=== PATIENT | male | born 1945 | race Caucasian/White ===

== ENCOUNTER 2019-01-19 15:42 | Inpatient (IN) | payer MEDICAID, OTHER ==
[~2019-01-19] VITALS: Ht 172.7 cm; Wt 79.6 kg
[~2019-01-19 15:42] MED LIST: APIX5TAB PO; DIGO250T72 PO; DILT360C27 PO; FURO40TA4 PO; METO-319 PO; [UNRECOGNIZED DRUG - CODE] PO
[2019-01-19] MEDS ORDERED: ASPIRIN 81 MG TAB PO STA (15:53)
[2019-01-19] MEDS ORDERED: ALBUTEROL 0.083% (NEB) 2.5 MG/3 ML AMP NEB STA (16:00)
--- NOTE | 2019-01-19 16:19 | ERD ---
ER Documentation Chief Complaint Chief Complaint CP x 2 days worsening CP, SON and BLE swelling HPI 73-year-old Amharic speaking male with a history of hypertension, atrial fibrillation on Eliquis and metoprolol, and heart failure brought in by son for chest pain and worsening shortness of breath for the past 2 days. Patient stat es that he always has shortness of breath and he does not know what makes it worse. He intermittently gets some left-sided chest pain but currently he is denying any chest pain. He feels generally fatigued. Denies any recent illnesses, fevers, chills, nausea, vomiting. He does have bilateral lower extremity swelling which is usually worse than it is currently. He is on furosemide which she is taking regularly. ROS All systems reviewed and are negative except as per history of present illness. Medications Home Meds Reported Medications Furosemide* (Furosemide*) 40 Mg Tablet, 40 MG PO DAILY, TAB 01/19/19 Apixaban* (Eliquis*) 5 Mg Tablet, 5 MG PO BID, TAB 01/19/19 Metoprolol Succinate* (Toprol XL*) 50 Mg Tab.er.24h, 50 MG PO BID, #30 TAB 01/19/19 Discontinued Reported Medications Aspirin/Calcium Carbonate/Mag (Asa-Ca Carb-Mag 325 Mg Tablet) 325 Mg Tablet, 325 MG PO DAILY 06/16/12 Digoxin (Digoxin) 250 Mcg Tablet, 250 MCG PO DAILY 06/16/12 Diltiazem Hcl (Diltiazem Er) 360 Mg Capsule.sa, 360 MG PO DAILY 06/16/12 Allergies Allergies: Coded Allergies: No Known Allergy (Unverified , 01/19/19) PMhx/Soc History of Surgery: No Anesthesia Reaction: No Hx Neurological Disorder: No Hx Respiratory Disorders: No Hx Cardiac Disorders: Yes (CAD-3 STENTS) Hx Psychiatric Problems: No Hx Miscellaneous Medical Probl: Yes (HTN) Hx Alcohol Use: Yes Hx Substance Use: No Hx Tobacco Use: Yes Smoking Status: Current every day smoker FmHx Family History: No diabetes Physical Exam Vitals Vital Signs Date Temp Pulse Resp B/P (MAP) Pulse Ox O2 O2 Flow FiO2 Time Delivery Rate 01/19/19 84 18 116/84 100 Room Air 18:22 (95) 01/19/19 98.0 102 21 114/80 99 Room Air 17:25 (91) 01/19/19 112 20 96 21 16:07 01/19/19 98.3 100 20 109/75 99 15:51 (86) Physical Exam Const: No acute distress Head: Atraumatic Eyes: Normal Conjunctiva , PERRLA, EOMI ENT: Normal External Ears, Nose and Mouth. Neck: Full range of motion. No meningismus. Resp: Clear to auscultation bilaterally Cardio: Tachycardic with irregular rhythm, no murmurs. 2+ distal pulses in all 4 extremities Abd: Soft, non tender, non distended. Normal bowel sounds Skin: No petechiae or rashes Back: No midline or flank tenderness Ext: No cyanosis, trace bilateral lower extremity edema Neur: Awake and alert, oriented x3, normal speech, cranial nerves intact, strength and sensations intact in all 4 extremities Psych: Normal Mood and Affect Result Diagram: 01/19/19 1559 01/19/19 1559 Results 24 hrs Laboratory Tests Test 01/19/19 15:59 01/19/19 18:20 White Blood Count 8.4 10^3/ul Red Blood Count 4.56 10^6/ul Hemoglobin 7.6 g/dl Hematocrit 30.6 % Mean Corpuscular Volume 67.1 fl Mean Corpuscular Hemoglobin 16.7 pg Mean Corpuscular Hemoglobin Concent 24.8 g/dl Red Cell Distribution Width 20.8 % Platelet Count 248 10^3/UL Mean Platelet Volume fl Immature Granulocytes % 0.400 % Neutrophils % 60.3 % Lymphocytes % 25.3 % Monocytes % 11.1 % Eosinophils % 2.3 % Basophils % 0.6 % Nucleated Red Blood Cells % 0.2 /100WBC Immature Granulocytes # 0.030 10^3/ul Neutrophils # 5.1 10^3/ul Lymphocytes # 2.1 10^3/ul Monocytes # 0.9 10^3/ul Eosinophils # 0.2 10^3/ul Basophils # 0.1 10^3/ul Nucleated Red Blood Cells # 0.0 10^3/ul Sodium Level 141 mmol/L Potassium Level 4.4 mmol/L Chloride Level 105 mmol/L Carbon Dioxide Level 29 mmol/L Anion Gap 7 Blood Urea Nitrogen 22 mg/dl Creatinine 0.88 mg/dl Est Glomerular Filtrat Rate mL/min mL/min Glucose Level 116 mg/dl Calcium Level 9.1 mg/dl Troponin I < 0.012 ng/ml Stool Occult Blood NEGATIVE Current Medications Medications Dose Sig/Rosaura Start Time Status Last (Trade) Ordered Route PRN Stop Time Admin Dose Reason Admin Aspirin 162 mg ONCE STAT 01/19/19 DC 01/19/19 (Aspirin) PO 15:53 01/19/19 16:16 15:54 Albuterol 5 mg ONCE STAT 01/19/19 DC 01/19/19 (Proventil NEB 16:00 01/19/19 16:07 0.083% (Neb)) 16:01 Diltiazem 15 mg ONCE ONCE 01/19/19 DC 01/19/19 HCl IV 16:30 01/19/19 16:23 (Cardizem Iv) 16:31 Ondansetron 4 mg ER BRIDGE 01/19/19 HCl (Zofran PRN IV 18:30 01/20/19 Inj) NAUSEA/VOMITI 18:29 NG 650 mg ER BRIDGE 01/19/19 Acetaminophen PRN PO 18:30 01/20/19 (Tylenol .MILD PAIN 18:29 Tab) 1-3 OR TEMP Procedures/MDM EMERGENT LABS AND DIAGNOSTIC STUDIES: Lab Results above were reviewed and interpreted by me. CBC: Anemia BMP: [no e/o clinically significant electrolyte abnormality severe acidosis, alkalosis, renal failure, diabetic ketoacidosis] Troponin within normal limits, not indicative of cardiac ischemia Fecal occult blood negative 12-lead EKG was interpreted by Leni Harding MD: Atrial flutter with variable AV block at 113 bpm Normal axis Normal intervals No acute ST or T wave changes suggestive of acute ischemia or STEMI. EKG #2: Rate/Rhythm: Atrial flutter with variable block at 102 bpm QRS, ST, T-waves: [No changes consistent w/ acute ischemia] Impression: [No evidence of ischemia or arrhythmia] EKG #3: Rate/Rhythm: Atrial flutter at 115 bpm QRS, ST, T-waves: [No changes consistent w/ acute ischemia] Impression: [No evidence of ischemia or arrhythmia] Radiology Results as interpreted by Radiology below were reviewed by Jeff Harding MD: Chest x-ray shows no acute abnormalities Initial Nursing notes reviewed. Previous Medical Records requested via the Electronic Health Record. EMERGENCY DEPARTMENT COURSE / MEDICAL DECISION MAKING: Patient is presenting with worsening fatigue and shortness of breath. Vitals are notable for mild tachycardia. EKG did not show signs of acute ischemia. Initial troponin negative. No overt signs of CHF exacerbation. However patient was noted to be anemic. He denies any history of this. The anemia is of unclear etiology at this time. No evidence of rectal bleeding. However I feel the patient will require further work-up and trending of his hemoglobin. At this time, as he is not having any active bleeding, I do not feel transfusion is necessary. I will defer this to the inpatient team. I spoke with Dr. [facility], who will admit the patient to telemetry. Departure Diagnosis: Primary Impression: Shortness of breath Additional Impression: Anemia Anemia type: unspecified type Qualified Codes: D64.9 - Anemia, unspecified Condition: Fair AKILA HARDING MD Jan 19, 2019 16:19
[2019-01-19] MEDS ORDERED: DILTIAZEM 25 MG INJ IV ONE (16:30)
[2019-01-19] MEDS ORDERED: ACETAMINOPHEN 325 MG TAB PO PRN ×2 (18:30→19:30)
[2019-01-19] MEDS ORDERED: ONDANSETRON 4 MG INJ IV PRN (18:30)
[2019-01-19] MEDS ORDERED: NACL 0.9% 3 ML SYG IV SCH (19:30)
[2019-01-19] MEDS ORDERED: DOCUSATE SODIUM 100 MG CAP PO PRN (19:30)
[2019-01-19] MEDS ORDERED: ONDANSETRON 4 MG TAB PO PRN (19:30)
[2019-01-19] MEDS: METOPROLOL (XL) 50 MG TAB PO SCH (20:49)
[2019-01-19] MEDS: APIXABAN 5 MG TABLET PO SCH (20:49)
[2019-01-19] MEDS: FAMOTIDINE 20 MG TAB PO SCH (20:49)
[2019-01-19 21:31] VITALS: BP 146/73; PULSE 97; RESP 20
[2019-01-19 21:33] VITALS: Ht 172.7 cm; Wt 79.6 kg
[2019-01-20 00:31] VITALS: BP 127/96; PULSE 99; RESP 18
[2019-01-20 04:00] VITALS: BP 149/82; PULSE 110; RESP 18
[2019-01-20 07:32] VITALS: BP 113/73; PULSE 112; RESP 22
[2019-01-20] MEDS ORDERED: FUROSEMIDE 40 MG INJ IV ONE (08:00)
[2019-01-20] MEDS: METOPROLOL (XL) 50 MG TAB PO SCH ×2 (09:06→20:48)
[2019-01-20] MEDS: FAMOTIDINE 20 MG TAB PO SCH ×2 (09:06→20:47)
[2019-01-20] MEDS: APIXABAN 5 MG TABLET PO SCH (10:28)
[2019-01-20 11:10] VITALS: BP 122/54; PULSE 112; RESP 22
--- NOTE | 2019-01-20 12:30 | HP ---
DATE OF ADMISSION: 01/19/2019 CHIEF COMPLAINT: Chest pain, shortness of breath. HISTORY OF PRESENT ILLNESS: A 73-year-old male with history of hypertension, chronic atrial fibrilla tion, and congestive heart failure, who presented to Emergency Room with complaint of chest pain and shortness of breath for the past 2 days prior to admission. The patient has chronic shortness of jennifer ath due to chronic obstructive pulmonary disease. He continues to smoke heavily. The chest pain is exertional at times he feels fatigued stay. He denies nausea, vomiting or diaphoresis. The patient also noted some mild lower extremity edema. Initial evaluation revealed hemoglobin of 7.6 with MCV o f 67. A repeat hemoglobin was 6.7. WBC 6.6 and platelet count is 179,000. BMP was within normal li mits. Serial troponins have been normal. Stool occult blood was also negative. The patient denies hematemesis. No bright red blood per rectum or melena. PAST MEDICAL HISTORY: 1. Hypertension. 2. Chronic atrial fibrillation. 3. Chronic congestive heart failure. 4. Coronary artery disease, status post PCI and stent placement. 5. Chronic obstructive pulmonary disease. 6. Nicotine addiction. MEDICATIONS PRIOR TO ADMISSION: 1. Lasix 40 mg daily. 2. Eliquis 5 mg b.i.d. 3. Toprol-XL 50 mg b.i.d. SOCIAL HISTORY: Patient lives at home. He smokes on a daily basis. He drinks alcohol on social occ asions. PHYSICAL EXAMINATION: GENERAL: Well-developed, well-nourished male who is in no apparent distress. VITAL SIGNS: Stable. He is afebrile. HEENT: Extraocular muscles intact. Pupils equal and reactive to light bilaterally. Sclerae are ani cteric. Oropharynx is clear and moist. NECK: Supple, no JVD, no carotid bruits. LUNGS: Clear to auscultation bilaterally. CARDIAC: Irregularly irregular. No murmurs or gallops. ABDOMEN: Soft, nontender, nondistended, normoactive bowel sounds. EXTREMITIES: Mild pedal edema. NEUROLOGICAL: Nonfocal. ASSESSMENT: 1. A 73-year-old male with exertional chest pain and shortness of breath. This is most likely due t o underlying anemia. 2. Microcytic anemia. Rule out gastrointestinal bleed. 3. Hypertension, well controlled. 4. Chronic atrial fibrillation. 5. Coronary artery disease. 6. Chronic obstructive pulmonary disease. PLAN: 1. Admit to telemetry. Check iron panel, B12, folate. 2. Transfuse 2 units of packed RBC. Hold Eliquis. 3. Continue Toprol and Lasix. 4. Hematology consultation was requested. Dictated By: KRISTEN CRUZ/NTS Conf#: [id number] DID#: [id number] CC: LUANN MONTALVO MD;*End*
[2019-01-20 15:45] VITALS: BP 129/88; PULSE 116; RESP 22
--- NOTE | 2019-01-20 17:04 | CONS ---
Assessment/Plan Assessment/Plan Assessment/Plan (Daily) Assessment: Severe microcytic anemia Therapeutic anticoagulation A fib HASCVD/CAD COPD Plan; EGD/Colonoscopy Hold Eliquis Transfuse to Hgb >7.5 Consultation Date/Type/Reason Admit Date/Time Jan 19, 2019 at 18:18 Date of Consultation: Jan 20, 2019 Type of Consult GI Reason for Consultation Anemia Date/Time of Note DATE: 01/20/19 TIME: 16:55 Hx of Present Illness 73 yo male with limited Kittitian. Hospitalized with severe anemia. No overt GI bleeding. No GI symptoms. On Eliquis for A fib. Constitutional: no complaints Eyes: no complaints Respiratory: no complaints Cardiovascular: chest pain Gastrointestinal: no complaints Genitourinary: no complaints Musculoskeletal: no complaints Skin: no complaints Neurologic: no complaints Endocrine: no complaints Past Medical History Medical History: angina, coronary artery disease, hypertension, other (COPD, A fib) Home Meds Reported Medications Furosemide* (Furosemide*) 40 Mg Tablet, 40 MG PO DAILY, TAB 01/19/19 Metoprolol Succinate* (Toprol XL*) 50 Mg Tab.er.24h, 50 MG PO BID, #30 TAB 01/19/19 Discontinued Reported Medications Apixaban* (Eliquis*) 5 Mg Tablet, 5 MG PO BID, TAB 01/19/19 Aspirin/Calcium Carbonate/Mag (Asa-Ca Carb-Mag 325 Mg Tablet) 325 Mg Tablet, 325 MG PO DAILY 06/16/12 Digoxin (Digoxin) 250 Mcg Tablet, 250 MCG PO DAILY 06/16/12 Diltiazem Hcl (Diltiazem Er) 360 Mg Capsule.sa, 360 MG PO DAILY 06/16/12 Medications Current Medications Apixaban (Eliquis) 5 mg BID PO Last administered on 01/19/19at 20:49; Admin Dose 5 MG; Start 01/19/19 at 21:00; Status Hold Metoprolol Succinate (Toprol Xl) 50 mg BID PO Last administered on 01/20/19at 09:06; Admin Dose 50 MG; Start 01/19/19 at 21:00 IV Flush (NS 3 ml) 3 ml PER PROTOCOL IV ; Start 01/19/19 at 19:30 Ondansetron HCl (Zofran Tab) 4 mg Q6H PRN PO NAUSEA/VOMITING; Start 01/19/19 at 19:30 Acetaminophen (Tylenol Tab) 650 mg Q6H PRN PO .PAIN 1-3 OR TEMP; Start 01/19/19 at 19:30 Docusate Sodium (Colace) 100 mg Q12H PRN PO .CONSTIPATION; Start 01/19/19 at 19:30 Famotidine (Pepcid) 20 mg Q12 PO Last administered on 01/20/19at 09:06; Admin Dose 20 MG; Start 01/19/19 at 21:00 Allergies: Coded Allergies: No Known Allergy (Unverified , 01/19/19) Past Surgical History Past Surgical Hx: no surgical history Family History Significant Family History: no pertinent family hx Social History Alcohol Use: rarely Smoking Status: Current every day smoker Drug Use: none Exam/Review of Systems Exam Vitals Vital Signs Date Temp Pulse Resp B/P (MAP) Pulse Ox O2 O2 Flow FiO2 Time Delivery Rate 01/20/19 98.0 116 22 129/88 96 Room Air 15:45 (102) 01/19/19 21 16:07 Intake and Output 01/19/19 01/19/19 01/20/19 1515:00 23:00 07:00 IntakeIntake Total 360 ml BalanceBalance 360 ml Constitutional: alert, oriented, well developed Psych: no complaints, nl mood/affect Head: normocephalic, atraumatic Eyes: nl conjunctiva, EOMI, nl lids, nl sclera, PERRL ENMT: nl external ears & nose, nl lips & teeth, nl nasal mucosa & septum Neck: supple, non-tender Respiratory: clear to auscultation, normal air movement Cardiovascular: regular rate and rhythm, nl pulses Gastrointestinal: soft, nl liver, spleen, non-tender Musculoskeletal: nl extremities to inspection, nl gait and stance Results Result Diagram: 01/20/1952201/20/19 0524 Results 24hrs Laboratory Tests Test 01/19/19 18:20 01/19/19 21:56 01/20/19 05:23 01/20/19 05:24 Stool Occult Blood NEGATIVE Creatine Kinase 26 23 Creatine Kinase Index 2.4 3.3 Creatinine Kinase MB 0.62 0.77 (Mass) Troponin I < 0.012 < 0.012 White Blood Count 6.6 # Red Blood Count 3.92 L Hemoglobin 6.7 *L Hematocrit 26.3 L Mean Corpuscular Volume 67.1 L Mean Corpuscular 17.1 L Hemoglobin Mean Corpuscular 25.5 L Hemoglobin Concent Red Cell Distribution 20.4 H Width Platelet Count 179 # Mean Platelet Volume 10.0 Immature Granulocytes % 0.300 Neutrophils % Segmented Neutrophils 61 % (Manual) Band Neutrophils % 6 H (Manual) Lymphocytes % Lymphocytes % (Manual) 19 Monocytes % Monocytes % (Manual) 12 H Eosinophils % Eosinophils % (Manual) 1 Basophils % Basophils % (Manual) 1 Nucleated Red Blood 0.3 H Cells % Immature Granulocytes # 0.020 Neutrophils # Neutrophils # (Manual) 4.0 Band Neutrophils # 0.3 Lymphocytes (Manual) 1.2 Lymphocytes # Monocytes # Monocytes # (Manual) 0.7 Eosinophils # Basophils # Basophils # (Manual) 0.0 Nucleated Red Blood Cells # Platelet Estimate NORMAL Polychromasia 3+ Hypochromasia 2+ Poikilocytosis 2+ Anisocytosis 3+ Microcytosis 3+ Target Cells 1+ Ovalocytes 1+ Elliptocytes 1+ Hemoglobin A1c 5.9 Sodium Level 139 Potassium Level 4.4 Chloride Level 107 Carbon Dioxide Level 26 Anion Gap 6 Blood Urea Nitrogen 24 H Creatinine 0.71 Est Glomerular Filtrat Rate mL/min Glucose Level 134 Calcium Level 8.6 Triglycerides Level 57 Cholesterol Level 96 L LDL Cholesterol, 69 Calculated HDL Cholesterol 16 L Cholesterol/HDL Ratio 6.0 Thyroid Stimulating 1.810 Hormone (TSH) Test 01/20/19 10:04 01/20/19 11:27 Iron Level 17 L Total Iron Binding 374 Capacity Percent Iron Saturation 5 L Vitamin B12 Level 544 Folate 17.1 Total Bilirubin 0.8 Direct Bilirubin 0.00 Indirect Bilirubin 0.8 Aspartate Amino 24 Transf (AST/SGOT) Alanine 21 Aminotransferase (ALT/SG PT) Alkaline Phosphatase 80 Creatine Kinase 25 Creatine Kinase Index 2.7 Creatinine Kinase MB 0.67 (Mass) Troponin I < 0.012 Total Protein 7.2 Albumin 3.9 Medications Medication Current Medications Apixaban (Eliquis) 5 mg BID PO Last administered on 01/19/19at 20:49; Admin Dose 5 MG; Start 01/19/19 at 21:00; Status Hold Metoprolol Succinate (Toprol Xl) 50 mg BID PO Last administered on 01/20/19at 09:06; Admin Dose 50 MG; Start 01/19/19 at 21:00 IV Flush (NS 3 ml) 3 ml PER PROTOCOL IV ; Start 01/19/19 at 19:30 Ondansetron HCl (Zofran Tab) 4 mg Q6H PRN PO NAUSEA/VOMITING; Start 01/19/19 at 19:30 Acetaminophen (Tylenol Tab) 650 mg Q6H PRN PO .PAIN 1-3 OR TEMP; Start 01/19/19 at 19:30 Docusate Sodium (Colace) 100 mg Q12H PRN PO .CONSTIPATION; Start 01/19/19 at 19:30 Famotidine (Pepcid) 20 mg Q12 PO Last administered on 01/20/19at 09:06; Admin Dose 20 MG; Start 01/19/19 at 21:00 KODI WALLACE MD Jan 20, 2019 17:04
[2019-01-20] MEDS ORDERED: BISACODYL (EC) 5 MG TAB PO ONE (17:30)
[2019-01-20] MEDS ORDERED: MAGNESIUM CITRATE 300 ML BTL PO ONE (17:30)
--- NOTE | 2019-01-20 17:57 | CONS ---
Assessment/Plan Assessment/Plan Hospital Course (Demo Recall) Acute blood loss anemia Atrial flutter on anticoagulation Hypertension Patient presents with shortness of breath, palpitations and found to be severely anemic He with holding anticoagulation, currently receiving blood transfusion, hold antiplatelet therapy Continue beta-blockers heart rate and blood pressure permits, statin therapy if no contraindication Serial cardiac enzymes are negative, echocardiogram pending Given his risk factors, he is at an intermediate risk for any untoward cardiac events for GI procedure.Given patient with severe anemia and undergoing work-up for GI bleed, the benefits of endoscopy outweigh the risks at the current time. Consultation Date/Type/Reason Admit Date/Time Jan 19, 2019 at 18:18 Type of Consult Cardiology Reason for Consultation Shortness of breath and palpitations Date/Time of Note DATE: 01/20/19 TIME: 17:53 Hx of Present Illness This is a 73-year-old male with past medical history of atrial fibrillation on anticoagulation, hypertension who presents with progressive worsening shortness of breath and palpitations over the past few days. As per son over the phone, patient with always shortness of breath with significant exertion. He denies chest pain currently but has been having palpitations with exertion. Since he is been admitted and receiving blood transfusion, he is feeling better. He denies any current chest pain or shortness of breath. He can walk a minimum of 50 feet without shortness of breath, he can find 1-2 flights without shortness of breath or palpitations usually. 12 point review of systems was performed with all pertinent positives and negatives mentioned above and all else is negative Past Medical History Atrial flutter Hypertension Home Meds Reported Medications Furosemide* (Furosemide*) 40 Mg Tablet, 40 MG PO DAILY, TAB 01/19/19 Metoprolol Succinate* (Toprol XL*) 50 Mg Tab.er.24h, 50 MG PO BID, #30 TAB 01/19/19 Discontinued Reported Medications Apixaban* (Eliquis*) 5 Mg Tablet, 5 MG PO BID, TAB 01/19/19 Aspirin/Calcium Carbonate/Mag (Asa-Ca Carb-Mag 325 Mg Tablet) 325 Mg Tablet, 325 MG PO DAILY 06/16/12 Digoxin (Digoxin) 250 Mcg Tablet, 250 MCG PO DAILY 06/16/12 Diltiazem Hcl (Diltiazem Er) 360 Mg Capsule.sa, 360 MG PO DAILY 06/16/12 Medications Current Medications Apixaban (Eliquis) 5 mg BID PO Last administered on 01/19/19at 20:49; Admin Dose 5 MG; Start 01/19/19 at 21:00; Status Hold Metoprolol Succinate (Toprol Xl) 50 mg BID PO Last administered on 01/20/19at 09:06; Admin Dose 50 MG; Start 01/19/19 at 21:00 IV Flush (NS 3 ml) 3 ml PER PROTOCOL IV ; Start 01/19/19 at 19:30 Ondansetron HCl (Zofran Tab) 4 mg Q6H PRN PO NAUSEA/VOMITING; Start 01/19/19 at 19:30 Acetaminophen (Tylenol Tab) 650 mg Q6H PRN PO .PAIN 1-3 OR TEMP; Start 01/19/19 at 19:30 Docusate Sodium (Colace) 100 mg Q12H PRN PO .CONSTIPATION; Start 01/19/19 at 19:30 Famotidine (Pepcid) 20 mg Q12 PO Last administered on 01/20/19at 09:06; Admin Dose 20 MG; Start 01/19/19 at 21:00 Polyethylene Glycol (Miralax) 119 gm ONCE ONCE PO ; Start 01/20/19 at 18:30; Stop 01/20/19 at 18:31 Polyethylene Glycol (Miralax) 119 gm 2ND DOSE (GI PREP) ONCE PO ; Start 01/21/19 at 06:00; Stop 01/21/19 at 06:01 Bisacodyl (Dulcolax) 10 mg 2ND DOSE (GI PREP) ONCE PO ; Start 01/21/19 at 08:00; Stop 01/21/19 at 08:01 Allergies: Coded Allergies: No Known Allergy (Unverified , 01/19/19) Past Surgical History Past Surgical Hx: no surgical history Family History Significant Family History: no pertinent family hx Social History Alcohol Use: rarely Smoking Status: Current every day smoker Drug Use: none Exam/Review of Systems Vital Signs Vitals Vital Signs Date Temp Pulse Resp B/P (MAP) Pulse Ox O2 O2 Flow FiO2 Time Delivery Rate 01/20/19 98.0 116 22 129/88 96 Room Air 15:45 (102) 01/19/19 16:07 Intake and Output 01/19/19 01/19/19 01/20/19 1515:00 23:00 07:00 IntakeIntake Total 360 ml BalanceBalance 360 ml Exam Constitutional: alert, oriented (Eating lunch, no apparent distress) Head: normocephalic Respiratory: other (Coarse breath sounds bilaterally, no wheezing) Cardiovascular: irregular rhythm (S1-S2 heard) Gastrointestinal: soft, non-tender, bowel sounds Extremities: other (No significant edema) Labs Result Diagram: 01/20/19 0523 01/20/19 0524 Results 24hrs Laboratory Tests Test 01/19/19 18:20 01/19/19 21:56 01/20/19 05:23 01/20/19 05:24 Stool Occult Blood NEGATIVE Creatine Kinase 26 23 Creatine Kinase Index 2.4 3.3 Creatinine Kinase MB 0.62 0.77 (Mass) Troponin I < 0.012 < 0.012 White Blood Count 6.6 # Red Blood Count 3.92 L Hemoglobin 6.7 *L Hematocrit 26.3 L Mean Corpuscular Volume 67.1 L Mean Corpuscular 17.1 L Hemoglobin Mean Corpuscular 25.5 L Hemoglobin Concent Red Cell Distribution 20.4 H Width Platelet Count 179 # Mean Platelet Volume 10.0 Immature Granulocytes % 0.300 Neutrophils % Segmented Neutrophils 61 % (Manual) Band Neutrophils % 6 H (Manual) Lymphocytes % Lymphocytes % (Manual) 19 Monocytes % Monocytes % (Manual) 12 H Eosinophils % Eosinophils % (Manual) 1 Basophils % Basophils % (Manual) 1 Nucleated Red Blood 0.3 H Cells % Immature Granulocytes # 0.020 Neutrophils # Neutrophils # (Manual) 4.0 Band Neutrophils # 0.3 Lymphocytes (Manual) 1.2 Lymphocytes # Monocytes # Monocytes # (Manual) 0.7 Eosinophils # Basophils # Basophils # (Manual) 0.0 Nucleated Red Blood Cells # Platelet Estimate NORMAL Polychromasia 3+ Hypochromasia 2+ Poikilocytosis 2+ Anisocytosis 3+ Microcytosis 3+ Target Cells 1+ Ovalocytes 1+ Elliptocytes 1+ Hemoglobin A1c 5.9 Sodium Level 139 Potassium Level 4.4 Chloride Level 107 Carbon Dioxide Level 26 Anion Gap 6 Blood Urea Nitrogen 24 H Creatinine 0.71 Est Glomerular Filtrat Rate mL/min Glucose Level 134 Calcium Level 8.6 Triglycerides Level 57 Cholesterol Level 96 L LDL Cholesterol, 69 Calculated HDL Cholesterol 16 L Cholesterol/HDL Ratio 6.0 Thyroid Stimulating 1.810 Hormone (TSH) Test 01/20/19 10:04 01/20/19 11:27 Iron Level 17 L Total Iron Binding 374 Capacity Percent Iron Saturation 5 L Vitamin B12 Level 544 Folate 17.1 Total Bilirubin 0.8 Direct Bilirubin 0.00 Indirect Bilirubin 0.8 Aspartate Amino 24 Transf (AST/SGOT) Alanine 21 Aminotransferase (ALT/SG PT) Alkaline Phosphatase 80 Creatine Kinase 25 Creatine Kinase Index 2.7 Creatinine Kinase MB 0.67 (Mass) Troponin I < 0.012 Total Protein 7.2 Albumin 3.9 Imaging Imaging ECG with atrial flutter at 102 bpm, QRS 90 ms, nonspecific ST abnormalities Medications Medications Current Medications Apixaban (Eliquis) 5 mg BID PO Last administered on 01/19/19at 20:49; Admin Dose 5 MG; Start 01/19/19 at 21:00; Status Hold Metoprolol Succinate (Toprol Xl) 50 mg BID PO Last administered on 01/20/19at 09:06; Admin Dose 50 MG; Start 01/19/19 at 21:00 IV Flush (NS 3 ml) 3 ml PER PROTOCOL IV ; Start 01/19/19 at 19:30 Ondansetron HCl (Zofran Tab) 4 mg Q6H PRN PO NAUSEA/VOMITING; Start 01/19/19 at 19:30 Acetaminophen (Tylenol Tab) 650 mg Q6H PRN PO .PAIN 1-3 OR TEMP; Start 01/19/19 at 19:30 Docusate Sodium (Colace) 100 mg Q12H PRN PO .CONSTIPATION; Start 01/19/19 at 19:30 Famotidine (Pepcid) 20 mg Q12 PO Last administered on 01/20/19at 09:06; Admin Dose 20 MG; Start 01/19/19 at 21:00 Polyethylene Glycol (Miralax) 119 gm ONCE ONCE PO ; Start 01/20/19 at 18:30; Stop 01/20/19 at 18:31 Polyethylene Glycol (Miralax) 119 gm 2ND DOSE (GI PREP) ONCE PO ; Start 01/21/19 at 06:00; Stop 01/21/19 at 06:01 Bisacodyl (Dulcolax) 10 mg 2ND DOSE (GI PREP) ONCE PO ; Start 01/21/19 at 08:00; Stop 01/21/19 at 08:01 Hola Caban DO Jan 20, 2019 17:57
[2019-01-20] MEDS ORDERED: POLYETHYLENE GLYCOL 3350 119 GM POWDER PO ONE (18:30)
--- NOTE | 2019-01-20 18:50 | RADRPT ---
Echocardiogram Report Patient Name: Rex HALE ID: [id number] : 1945 (73y 2m)Study Date: 01/20/2019 12:34:02 PM Gender: MAccession #: [id number] Tech: Charly Lima [facility] Location: [facility] Ref.Physician: KRISTEN RIVAS Height(Cm): BSA: Weight(Kg): Quality: AdequateOrder Physician: KRISTEN RIVAS Account #: Procedures: Echocardiographic Report: Transthoracic echocardiogram with complete 2D, M-Mode, and doppler examination. Indications: Chest Pain. Measurements: 2D/M Mode Doppler Measurement Value Normal Range Measurement Value Normal Range LVIDd 2D 4.5 [ 4.2 - 5.8 ] cm SIMÓN VTI 1.0 [ 2.0 - 4.0 ] cm2 LVIDs 2D 2.4 [ 2.5 - 4.0 ] cm AV Mean Marcial 2.9 [ 70.0 - 90.0 ] cm/sec LVPWd 2D 1.1 [ 0.6 - 1.0 ] cm AV Mean PG 35.0 [ 2.0 - 4.0 ] mmHg IVSd 2D 1.3 [ 0.6 - 1.0 ] cm AV VTI 74.5 cm AoR Diam 2D 2.8 [ 2.6 - 3.4 ] cm LVOT Mean Marcial 0.7 [ 60.0 - 80.0 ] cm/sec EDV 2D 92.9 [ 62.0 - 150.0 ] ml LVOT Mean PG 2.0 [ 1.0 - 3.0 ] mmHg ESV 2D 20.8 [ 21.0 - 61.0 ] ml LVOT Peak Marcial 1.1 [ 70.0 - 110.0 ] cm/sec EF 2D 77.6 [ 52.0 - 72.0 ] percent LVOT Peak PG 5.0 [ 2.0 - 6.0 ] mmHg LA Dimen 2D 4.5 [ 3.0 - 4.0 ] cm LVOT VTI 22.9 [ 20.0 - 30.0 ] cm LVOT Diam 2.0 [ 2.3 - 2.9 ] cm MV E Peak Marcial 1.3 [ 60.0 - 130.0 ] cm/sec MV A Peak Marcial 0.8 [ 100.0 - 120.0 ] cm/sec MV E/A 1.7 [ 0.8 - 1.5 ] ratio MV Peak Marcial 2.3 [ 60.0 - 130.0 ] cm/sec MV Peak PG 21.0 [ 1.0 - 10.0 ] mmHg MV Mean Marcial 1.3 cm/sec MV Mean PG 8.0 mmHg MV Decel Time 158 [ 104 - 258 ] msec MV E/A 1.7 [ 0.8 - 1.5 ] ratio MV VTI 59.4 cm MVA VTI 1.2 cm TR Peak Marcial 4.5 [ 100.0 - 280.0 ] cm/sec TR Peak PG 82.0 mmHg RVSP 97.0 [ 10.0 - 36.0 ] mmHg RA Pressure 15.0 mmHg Findings: Left Ventricle: Normal left ventricular systolic function. Normal left ventricular cavity size. Mild concentric left ventricular hypertrophy. Ejection fraction is visually estimated at 65 %. Abnormal Diastolic Function. Right Ventricle: Mild enlargement of right ventricle. Moderate right ventricular hypokinesis. Left Atrium: There is mild enlargement of left atrium. Right Atrium: There is moderate enlargement of right atrium. Mitral Valve: Mitral valve leaflets appear mildly thickened. Moderate mitral annular calcification. Mild mitral valve regurgitation. Moderate mitral stenosis. MeanPG 8.00 mmHg. Aortic Valve: Moderate aortic stenosis. Mean PG 35.00 mmHg. Aortic cusps appear severely calcified. Trace aortic valve regurgitation. Tricuspid Valve: Tricuspid valve not well visualized. The estimated Peak RVSP is 97 mmHg. Tricuspid valve appears mildly thickened. There is moderate tricuspid regurgitation. Pulmonic Valve: Pulmonic valve not well visualized. Pericardium: Small pericardial effusion. Aorta: Normal aortic root. IVC: Dilated inferior vena cava with poor inspiratory collapse consistent with elevated right atrial pressures. Conclusions: Normal left ventricular systolic function. Normal left ventricular cavity size. Mild concentric left ventricular hypertrophy. Ejection fraction is visually estimated at 65 %. Abnormal Diastolic Function. Mild enlargement of right ventricle. Moderate right ventricular hypokinesis. There is moderate enlargement of right atrium. There is mild enlargement of left atrium. Mild mitral valve regurgitation. Moderate mitral stenosis. Moderate aortic stenosis. Trace aortic valve regurgitation. The estimated Peak RVSP is 97 mmHg. There is moderate tricuspid regurgitation. Small pericardial effusion. Electronically Signed By: Hola Caban 2019-01-20 18:50:03 PDT
[2019-01-20 20:13] VITALS: BP 139/89; PULSE 111; RESP 18
[2019-01-21] VITALS (20 sets, daily range): BP systolic 93–146; BP diastolic 52–96; PULSE 78–113; RESP 14–27
[2019-01-21] MEDS ORDERED: POLYETHYLENE GLYCOL 3350 119 GM POWDER PO ONE (06:00)
[2019-01-21] MEDS: FAMOTIDINE 20 MG TAB PO SCH ×2 (07:45→21:05)
[2019-01-21] MEDS: METOPROLOL (XL) 50 MG TAB PO SCH ×2 (07:45→21:05)
[2019-01-21] MEDS ORDERED: BISACODYL (EC) 5 MG TAB PO ONE (08:00)
--- NOTE | 2019-01-21 10:37 | PN ---
Date/Time of Note Date/Time of Note DATE: 01/21/19 TIME: 10:35 Subjective Doing well. No chest pain or shortness of breath. No bright red blood per rectum or melena Objective Vitals Vital Signs Date Temp Pulse Resp B/P (MAP) Pulse Ox O2 O2 Flow FiO2 Time Delivery Rate 01/21/19 98.1 113 18 138/92 99 Room Air 08:05 (107) 01/19/19 21 16:07 Intake and Output 01/20/19 01/20/19 01/21/19 1515:00 23:00 07:00 IntakeIntake Total 630 ml 1500 ml BalanceBalance 630 ml 1500 ml Results Result Diagram: 01/21/19 0513 01/20/19 0524 Medications Medications Current Medications Apixaban (Eliquis) 5 mg BID PO Last administered on 01/19/19at 20:49; Admin Dose 5 MG; Start 01/19/19 at 21:00; Status Hold Metoprolol Succinate (Toprol Xl) 50 mg BID PO Last administered on 01/20/19at 20:48; Admin Dose 50 MG; Start 01/19/19 at 21:00 IV Flush (NS 3 ml) 3 ml PER PROTOCOL IV ; Start 01/19/19 at 19:30 Ondansetron HCl (Zofran Tab) 4 mg Q6H PRN PO NAUSEA/VOMITING; Start 01/19/19 at 19:30 Acetaminophen (Tylenol Tab) 650 mg Q6H PRN PO .PAIN 1-3 OR TEMP; Start 01/19/19 at 19:30 Docusate Sodium (Colace) 100 mg Q12H PRN PO .CONSTIPATION; Start 01/19/19 at 19:30 Famotidine (Pepcid) 20 mg Q12 PO Last administered on 01/20/19at 20:47; Admin Dose 20 MG; Start 01/19/19 at 21:00 VTE Prophylaxis Risk score (from Nsg)>0 risk: 2 SCD applied (from Nsg): Yes Lines/Catheters IV Catheter Type: Saline Lock Benites in Place: No Assessment/Plan Assessment/Plan 73-year-old male with iron deficiency anemia Rule out GI bleed Chronic atrial fibrillation, rate controlled, off Eliquis Coronary artery disease, stable Hypertension Proceed with EGD and colonoscopy GI and cardiology follow-up Discharge planning following the procedure Patient may need to stay off Eliquis EVELYN, RKISTEN MD Jan 21, 2019 10:37
--- NOTE | 2019-01-21 10:40 | PDOCDIS ---
Discharge Instructions CONDITION [id number] Patient Condition: [id number] Good HOME CARE INSTRUCTIONS: [id number] Diet Instructions: [id number] FOLLOW UP/APPOINTMENTS Follow-up Plan pcp [address] Hargrove call for appointment KRISTEN RIVAS MD Jan 21, 2019 10:40
--- NOTE | 2019-01-21 13:15 | CONS ---
Assessment/Plan Assessment/Plan Hospital Course (Demo Recall) Acute blood loss anemia Atrial flutter on anticoagulation-currently on hold Hypertension Preserved left ventricular ejection fraction Severe pulmonary hypertension Moderate aortic valve stenosis, mitral valve stenosis and tricuspid valve regurgitation Preoperative cardiac risk stratification Heart rate trend remained stable Pending endoscopy Restart anticoagulation when okay with GI Continue beta-blockers heart rate and blood pressure permits, statin therapy if no contraindication Please refer to initial consultation note 01/20/2019 discussing preoperative cardiac risk stratification for endoscopy/colonoscopy Consultation Date/Type/Reason Admit Date/Time Jan 19, 2019 at 18:18 Initial Consult Date 01/20/19 Type of Consult Cardiology Date/Time of Note DATE: 01/21/19 TIME: 13:12 24 HR Interval Summary Free Text/Dictation Denies chest pain, shortness of breath, feeling better Exam/Review of Systems Vital Signs Vitals Vital Signs Date Temp Pulse Resp B/P (MAP) Pulse Ox O2 O2 Flow FiO2 Time Delivery Rate 01/21/19 98.0 78 18 143/77 99 High Flow 12:03 (99) 01/19/19 21 16:07 Intake and Output 01/20/19 01/20/19 01/21/19 1515:00 23:00 07:00 IntakeIntake Total 630 ml 1500 ml BalanceBalance 630 ml 1500 ml Exam Constitutional: alert, oriented (No apparent distress) Head: normocephalic Respiratory: other (Coarse breath sounds bilaterally, no wheezing) Cardiovascular: irregular rhythm (S1-S2 heard) Gastrointestinal: soft, non-tender, bowel sounds Extremities: other (No significant edema) Labs Result Diagram: 01/21/19 0513 01/20/19 0524 Results 24hrs Laboratory Tests Test 01/20/19 22:36 01/21/19 05:13 01/21/19 05:33 Stool Occult Blood NEGATIVE White Blood Count 10.2 # Red Blood Count 4.75 # Hemoglobin 8.9 #L Hematocrit 33.3 #L Mean Corpuscular Volume 70.1 L Mean Corpuscular Hemoglobin 18.7 L Mean Corpuscular 26.7 L Hemoglobin Concent Red Cell Distribution Width 23.1 H Platelet Count 207 Mean Platelet Volume 10.8 H Immature Granulocytes % 0.300 Neutrophils % 66.5 Lymphocytes % 20.2 Monocytes % 10.8 Eosinophils % 1.7 Basophils % 0.5 Nucleated Red Blood Cells % 0.0 Immature Granulocytes # 0.030 Neutrophils # 6.8 Lymphocytes # 2.1 Monocytes # 1.1 H Eosinophils # 0.2 Basophils # 0.1 Nucleated Red Blood Cells # 0.0 Lab Scanned Report BLOOD TRANSFUSION Medications Medications Current Medications Apixaban (Eliquis) 5 mg BID PO Last administered on 01/19/19 20:49; Admin Dose 5 MG; Start 01/19/19 at 21:00; Status Hold Metoprolol Succinate (Toprol Xl) 50 mg BID PO Last administered on 01/20/19 20:48; Admin Dose 50 MG; Start 01/19/19 at 21:00 IV Flush (NS 3 ml) 3 ml PER PROTOCOL IV ; Start 01/19/19 at 19:30 Ondansetron HCl (Zofran Tab) 4 mg Q6H PRN PO NAUSEA/VOMITING; Start 01/19/19 at 19:30 Acetaminophen (Tylenol Tab) 650 mg Q6H PRN PO .PAIN 1-3 OR TEMP; Start 01/19/19 at 19:30 Docusate Sodium (Colace) 100 mg Q12H PRN PO .CONSTIPATION; Start 01/19/19 at 19:30 Famotidine (Pepcid) 20 mg Q12 PO Last administered on 01/20/19 20:47; Admin Dose 20 MG; Start 01/19/19 at 21:00 Hola Caban DO Jan 21, 2019 13:15
--- NOTE | 2019-01-21 13:53 | PREAC ---
Date/Time of Note Date/Time of Note DATE: 01/21/19 TIME: 13:51 Anesthesia Eval and Record Evaluation Time Pre-Procedure Interview DATE: 01/21/19 TIME: 13:51 Age 73 Sex male NPO: 8 hrs Preoperative diagnosis Abdominal pain, colon screening Planned procedure EGD, Colonoscopy Past Medical History Past Medical History: Includes Cardio: HTN, CHF Pulm: COPD GI: Obesity Surgery & Anesthesia Issues No known issue Meds Anticoagulation: Yes Beta Agnieszka within 24 hr: Yes Reason Beta Agnieszka not given: Pt. not on B-Agnieszka Reported Medications Furosemide* (Furosemide*) 40 Mg Tablet, 40 MG PO DAILY, TAB 01/19/19 Metoprolol Succinate* (Toprol XL*) 50 Mg Tab.er.24h, 50 MG PO BID, #30 TAB 01/19/19 Discontinued Reported Medications Apixaban* (Eliquis*) 5 Mg Tablet, 5 MG PO BID, TAB 01/19/19 Aspirin/Calcium Carbonate/Mag (Asa-Ca Carb-Mag 325 Mg Tablet) 325 Mg Tablet, 325 MG PO DAILY 06/16/12 Digoxin (Digoxin) 250 Mcg Tablet, 250 MCG PO DAILY 06/16/12 Diltiazem Hcl (Diltiazem Er) 360 Mg Capsule.sa, 360 MG PO DAILY 06/16/12 Current Medications Apixaban (Eliquis) 5 mg BID PO Last administered on 01/19/19at 20:49; Admin Dose 5 MG; Start 01/19/19 at 21:00; Status Hold Metoprolol Succinate (Toprol Xl) 50 mg BID PO Last administered on 01/20/19at 20:48; Admin Dose 50 MG; Start 01/19/19 at 21:00 IV Flush (NS 3 ml) 3 ml PER PROTOCOL IV ; Start 01/19/19 at 19:30 Ondansetron HCl (Zofran Tab) 4 mg Q6H PRN PO NAUSEA/VOMITING; Start 01/19/19 at 19:30 Acetaminophen (Tylenol Tab) 650 mg Q6H PRN PO .PAIN 1-3 OR TEMP; Start 01/19/19 at 19:30 Docusate Sodium (Colace) 100 mg Q12H PRN PO .CONSTIPATION; Start 01/19/19 at 19:30 Famotidine (Pepcid) 20 mg Q12 PO Last administered on 01/20/19at 20:47; Admin Dose 20 MG; Start 01/19/19 at 21:00 Meds reviewed: Yes Allergies Coded Allergies: No Known Allergy (Unverified , 01/19/19) Allergies Reviewed: Yes Labs/Studies Labs Reviewed: Reviewed by anesthesiologist Result Diagram: 01/21/19 0513 01/20/19 0524 Laboratory Tests 01/21/19 05:13 test: N/A Studies: ECG Pre-procedure Exam Last vitals Vital Signs Date Temp Pulse Resp B/P (MAP) Pulse Ox O2 O2 Flow FiO2 Time Delivery Rate 01/21/19 98.0 78 18 143/77 99 High Flow 12:03 (99) 01/19/19 21 16:07 Airway: Adequate mouth opening, Adequate thyromental dist Mallampati: Mallampati II Teeth: Normal Lung: Normal Heart: Normal ASA Physical Status ASA physical status: 4 Emergency: None Planned Anesthetic General/MAC: MAC Planned Pain Management Parenteral pain med Pre-operative Attestations Prior to commencing anesthesia and surgery, the patient was re-evaluated, there was verification of: *The patient's identity *The results of appropriate recent lab work and preoperative vital signs *The above evaluation not changing prior to induction *Anesthetic plan, risk benefits, alternative and complications discussed with patient/family; questions answered; patient/family understands, accepts and wishes to proceed. HERNAN MORENO MD Jan 21, 2019 13:53
[2019-01-21] MEDS ORDERED: PROPOFOL 200 MG INJ ONE (14:00)
[2019-01-21] MEDS ORDERED: PROPOFOL 60 ML ONE ×2 (14:01→14:41)
[2019-01-21] MEDS ORDERED: LIDOCAINE 2% (SDV) 5 ML INJ ONE (14:01)
--- NOTE | 2019-01-21 15:35 | PAC ---
Date/Time of Note Date/Time of Note DATE: 01/21/19 TIME: 15:34 Post-Anesthesia Notes Post-Anesthesia Note Last documented vital signs Vital Signs Date Temp Pulse Resp B/P (MAP) Pulse Ox O2 O2 Flow FiO2 Time Delivery Rate 01/21/19 98.0 78 18 143/77 99 High Flow 12:03 (99) 01/19/19 21 16:07 Activity: WNL Respiratory function: WNL Cardiovascular function: WNL Mental status: Baseline Pain reasonably controlled: Yes Hydration appropriate: Yes Nausea/Vomiting absent: Yes Comments BP:112/67, P:78, Spo2:100%, T:98,9 HERNAN MORENO MD Jan 21, 2019 15:35
[2019-01-21] MEDS ORDERED: IOHEXOL 300MG/ML 150 ML BTL ONE (19:55)
[2019-01-21] MEDS ORDERED: SOD CHLORIDE 0.9% 100 ML ONE (19:55)
--- NOTE | 2019-01-21 23:33 | CONS ---
Assessment/Plan Assessment/Plan Hospital Course (Demo Recall) The patient received transfusion of PRBC for his symptomatic anemia. He underwent an Upper endoscopy and colonoscopy. There was a sigmid colon mass dtected in the sigmoid colon Assessment/Plan (Daily) Iron deficiency anemia most likely secondary to chronic blood loss. Sigmoid colon mass detected on colonoscopy and biopsied. Suspected Malignancy Suggest CEA Fecal occult blood Abdominopelvic CT scan with IV and oral contrast Pending biopsy results Surgical evaluation Consultation Date/Type/Reason Admit Date/Time Jan 19, 2019 at 18:18 Date of Consultation: Jan 21, 2019 Type of Consult Initial Hematology/Oncology Reason for Consultation Severe anemia Requesting Provider: LIZZIE WESTFALL MD Date/Time of Note DATE: 01/21/19 TIME: 23:15 Hx of Present Illness This is a 73 year old man who developed shortness of breath and dyspnea on mild exertion during the last month. He also developed weakness and bilateral pedal swelling. Denies history of melena and/or hematochezia. Denies severe constipation and/or weight loss. Past Medical History Medical History: angina, coronary artery disease, hypertension, other (COPD, A fib) Home Meds Reported Medications Furosemide* (Furosemide*) 40 Mg Tablet, 40 MG PO DAILY, TAB 01/19/19 Metoprolol Succinate* (Toprol XL*) 50 Mg Tab.er.24h, 50 MG PO BID, #30 TAB 01/19/19 Discontinued Reported Medications Apixaban* (Eliquis*) 5 Mg Tablet, 5 MG PO BID, TAB 01/19/19 Aspirin/Calcium Carbonate/Mag (Asa-Ca Carb-Mag 325 Mg Tablet) 325 Mg Tablet, 325 MG PO DAILY 06/16/12 Digoxin (Digoxin) 250 Mcg Tablet, 250 MCG PO DAILY 06/16/12 Diltiazem Hcl (Diltiazem Er) 360 Mg Capsule.sa, 360 MG PO DAILY 06/16/12 Medications Current Medications Apixaban (Eliquis) 5 mg BID PO Last administered on 01/19/19at 20:49; Admin Dose 5 MG; Start 01/19/19 at 21:00; Status Hold Metoprolol Succinate (Toprol Xl) 50 mg BID PO Last administered on 01/21/19at 21:05; Admin Dose 50 MG; Start 01/19/19 at 21:00 IV Flush (NS 3 ml) 3 ml PER PROTOCOL IV ; Start 01/19/19 at 19:30 Ondansetron HCl (Zofran Tab) 4 mg Q6H PRN PO NAUSEA/VOMITING; Start 01/19/19 at 19:30 Acetaminophen (Tylenol Tab) 650 mg Q6H PRN PO .PAIN 1-3 OR TEMP; Start 01/19/19 at 19:30 Docusate Sodium (Colace) 100 mg Q12H PRN PO .CONSTIPATION; Start 01/19/19 at 19:30 Famotidine (Pepcid) 20 mg Q12 PO Last administered on 01/21/19at 21:05; Admin Dose 20 MG; Start 01/19/19 at 21:00 Allergies: Coded Allergies: No Known Allergy (Unverified , 01/19/19) Past Surgical History Past Surgical Hx: no surgical history Social History Alcohol Use: rarely Smoking Status: Current every day smoker Drug Use: none Exam/Review of Systems Exam Vitals Vital Signs Date Temp Pulse Resp B/P (MAP) Pulse Ox O2 O2 Flow FiO2 Time Delivery Rate 01/21/19 98.2 103 18 102/75 97 20:00 (84) 01/21/19 Room Air 16:30 01/21/19 6.0 15:30 01/19/19 21 16:07 Intake and Output 01/20/19 01/20/19 01/21/19 1515:00 23:00 07:00 IntakeIntake Total 630 ml 1500 ml BalanceBalance 630 ml 1500 ml Constitutional: alert, oriented, well developed Psych: no complaints, nl mood/affect Head: normocephalic Eyes: nl conjunctiva, EOMI, nl lids, nl sclera, PERRL ENMT: No nl external ears & nose, No nl lips & teeth, No nl nasal mucosa & septum, No mucosa pink and moist, No intubated, No tympanic membranes, No other Neck: No supple, No non-tender, No jvd, No bruits, No masses, No thyromegaly, No nuchal rigidity, No other Respiratory: wheezing (wheezes heard diffusely on auscultation) Gastrointestinal: soft, non-tender Musculoskeletal: nl extremities to inspection, nl gait and stance Extremities: normal pulses Neurological: [employer] CLERK II-XII intact, nl mental status, nl speech, nl strength Lymph: nl lymph nodes Results Result Diagram: 01/21/19 0513 01/20/19 0524 Results 24hrs Laboratory Tests Test 01/21/19 05:12 01/21/19 05:13 01/21/19 05:33 Carcinoembryonic Antigen 2.2 White Blood Count 10.2 # Red Blood Count 4.75 # Hemoglobin 8.9 #L Hematocrit 33.3 #L Mean Corpuscular Volume 70.1 L Mean Corpuscular Hemoglobin 18.7 L Mean Corpuscular 26.7 L Hemoglobin Concent Red Cell Distribution Width 23.1 H Platelet Count 207 Mean Platelet Volume 10.8 H Immature Granulocytes % 0.300 Neutrophils % 66.5 Lymphocytes % 20.2 Monocytes % 10.8 Eosinophils % 1.7 Basophils % 0.5 Nucleated Red Blood Cells % 0.0 Immature Granulocytes # 0.030 Neutrophils # 6.8 Lymphocytes # 2.1 Monocytes # 1.1 H Eosinophils # 0.2 Basophils # 0.1 Nucleated Red Blood Cells # 0.0 Lab Scanned Report BLOOD TRANSFUSION Medications Medication Current Medications Apixaban (Eliquis) 5 mg BID PO Last administered on 01/19/19at 20:49; Admin Dose 5 MG; Start 01/19/19 at 21:00; Status Hold Metoprolol Succinate (Toprol Xl) 50 mg BID PO Last administered on 01/21/19at 21:05; Admin Dose 50 MG; Start 01/19/19 at 21:00 IV Flush (NS 3 ml) 3 ml PER PROTOCOL IV ; Start 01/19/19 at 19:30 Ondansetron HCl (Zofran Tab) 4 mg Q6H PRN PO NAUSEA/VOMITING; Start 01/19/19 at 19:30 Acetaminophen (Tylenol Tab) 650 mg Q6H PRN PO .PAIN 1-3 OR TEMP; Start 01/19/19 at 19:30 Docusate Sodium (Colace) 100 mg Q12H PRN PO .CONSTIPATION; Start 01/19/19 at 19:30 Famotidine (Pepcid) 20 mg Q12 PO Last administered on 01/21/19at 21:05; Admin Dose 20 MG; Start 01/19/19 at 21:00 RAMON HAILE MD Jan 21, 2019 23:27
[2019-01-22 04:00] VITALS: BP 139/79; PULSE 104; RESP 18
[2019-01-22 07:27] VITALS: BP 155/95; PULSE 113; RESP 16
--- NOTE | 2019-01-22 08:21 | CONS ---
Assessment/Plan Assessment/Plan Assessment/Plan (Daily) Assessment Acute blood loss anemia Atrial flutter on anticoagulation-currently on hold Hypertension Preserved left ventricular ejection fraction Severe pulmonary hypertension Moderate aortic valve stenosis, mitral valve stenosis and tricuspid valve regurgitation Plan: no change in meds increased heartrate contributed by marked anemia Consultation Date/Type/Reason Admit Date/Time Jan 19, 2019 at 18:18 Initial Consult Date 01/21/19 Type of Consult Cardiology Requesting Provider: LIZZIE WESTFALL MD Date/Time of Note DATE: 01/22/19 TIME: 08:20 24 HR Interval Summary Free Text/Dictation no chest pain, no sob, no palpitations Detailed Summary Respiratory: no complaints Cardiovascular: no complaints Gastrointestinal: no complaints Musculoskeletal: no complaints Neurologic: no complaints Exam/Review of Systems Vital Signs Vitals Vital Signs Date Temp Pulse Resp B/P (MAP) Pulse Ox O2 O2 Flow FiO2 Time Delivery Rate 01/22/19 98.0 113 16 155/95 96 Room Air 07:27 (115) 01/21/19 6.0 15:30 01/19/19 16:07 Intake and Output 01/21/19 01/21/19 01/22/19 1515:00 23:00 07:00 IntakeIntake Total 60 ml 400 ml 150 ml BalanceBalance 60 ml 400 ml 150 ml Exam Constitutional: frail Head: normocephalic, atraumatic Neck: jvd Respiratory: clear to auscultation Cardiovascular: irregular rhythm Gastrointestinal: soft Musculoskeletal: nl extremities to inspection Extremities: normal pulses Labs Result Diagram: 01/21/1951201/20/19 05 Medications Medications Current Medications Apixaban (Eliquis) 5 mg BID PO Last administered on 01/19/19at 20:49; Admin Dose 5 MG; Start 01/19/19 at 21:00; Status Hold Metoprolol Succinate (Toprol Xl) 50 mg BID PO Last administered on 01/21/19at 21:05; Admin Dose 50 MG; Start 01/19/19 at 21:00 IV Flush (NS 3 ml) 3 ml PER PROTOCOL IV ; Start 01/19/19 at 19:30 Ondansetron HCl (Zofran Tab) 4 mg Q6H PRN PO NAUSEA/VOMITING; Start 01/19/19 at 19:30 Acetaminophen (Tylenol Tab) 650 mg Q6H PRN PO .PAIN 1-3 OR TEMP; Start 01/19/19 at 19:30 Docusate Sodium (Colace) 100 mg Q12H PRN PO .CONSTIPATION; Start 01/19/19 at 19:30 Famotidine (Pepcid) 20 mg Q12 PO Last administered on 01/21/19at 21:05; Admin Dose 20 MG; Start 01/19/19 at 21:00 FERMIN FAIRCHILD MD Jan 22, 2019 08:21
[2019-01-22] MEDS: FAMOTIDINE 20 MG TAB PO SCH (08:27)
[2019-01-22] MEDS: METOPROLOL (XL) 50 MG TAB PO SCH (08:27)
--- NOTE | 2019-01-22 11:24 | PDOCDIS ---
Discharge Instructions CONDITION [id number] Patient Condition: [id number] Good HOME CARE INSTRUCTIONS: [id number] Diet Instructions: [id number] FOLLOW UP/APPOINTMENTS Follow-up Plan pcp [address] Davison call for appointment general surgury KRISTEN Rocha MD Jan 22, 2019 11:24
--- NOTE | 2019-01-22 14:01 | DS ---
DATE OF ADMISSION: 01/19/2019 DATE OF DISCHARGE: 01/22/2019 DISCHARGE DIAGNOSES: 1. A 73-year-old male with profound iron deficiency anemia, stable post-transfusion. 2. Status post colonoscopy with findings of sigmoid colon mass. 3. Chronic atrial fibrillation, rate controlled, off Eliquis. 4. Coronary artery disease. 5. Hypertension. PROCEDURES DURING HOSPITALIZATION: Esophagogastroduodenoscopy and colonoscopy, CAT scan of the abdom en and pelvis. HOSPITAL COURSE: A 73-year-old male with history of coronary artery disease and chronic atrial fibri llation, presented to Emergency Room with complaint of chest pain, shortness of breath and generalize d weakness. The patient was found to have profound anemia. This was iron deficiency anemia due to b lood loss. The patient received 2 units of packed RBC. Repeat hemoglobin was 8.9. He no longer had chest pain or shortness of breath. The patient was seen in consultation by Dr. Caban and Dr. Davison. Colonoscopy showed a sigmoid colon mass. Biopsy was obtained. CAT scan of the abdomen and pelvis di d not show any evidence of metastatic disease. Focal mural thickening was seen in the proximal sigmoid colon which correlated to the colon mass disc overed on colonoscopy. The patient is in a stable condition for discharge. I advised him and his 2 sons to discontinue Eliquis. The patient will follow up with PCP, gastroenterology, and general surg martha. The patient was also seen in consultation by Dr. Cruz, hematology/ oncologist. He will fol low up Dr. Cruz if there is evidence of chronic malignancy. Dictated By: KRISTEN CRUZ/MIRIAN Conf#: [id number] DID#: [id number] CC: JAE CABAN DO; JENNIFER DAVISON MD; LUANN MONTALVO MD;*EndCC*
== END 2019-01-22 11:55 | disposition home or self-care (01) | DRG 375 ==
LOC: E/R 15:42 → 6WM 18:18
PROVIDERS: ADMIT Internal Medicine; ATTEND Internal Medicine
PROC: 30233N1 Transfusion of Nonautologous Red Blood Cells into Peripheral Vein, Percutaneous Approach (ICD-10-PCS; 2019-01-20)
PROC: 0DB68ZX Excision of Stomach, Via Natural or Artificial Opening Endoscopic, Diagnostic (ICD-10-PCS; 2019-01-21)
PROC: 0DB78ZX Excision of Stomach, Pylorus, Via Natural or Artificial Opening Endoscopic, Diagnostic (ICD-10-PCS; 2019-01-21)
PROC: 0D598ZZ Destruction of Duodenum, Via Natural or Artificial Opening Endoscopic (ICD-10-PCS; 2019-01-21)
PROC: 0D7K8DZ Dilation of Ascending Colon with Intraluminal Device, Via Natural or Artificial Opening Endoscopic (ICD-10-PCS; principal; 2019-01-21 14:30)
PROC: 0D7N8DZ Dilation of Sigmoid Colon with Intraluminal Device, Via Natural or Artificial Opening Endoscopic (ICD-10-PCS; 2019-01-21 14:30)
PROC: 0D7P8DZ Dilation of Rectum with Intraluminal Device, Via Natural or Artificial Opening Endoscopic (ICD-10-PCS; 2019-01-21 14:30)
DX: C18.7 Malignant neoplasm of sigmoid colon (principal); C18.2 Malignant neoplasm of ascending colon; D62 Acute posthemorrhagic anemia; I27.20 Pulmonary hypertension, unspecified; I11.0 Hypertensive heart disease with heart failure; I48.2 Chronic atrial fibrillation; I50.9 Heart failure, unspecified; I08.3 Combined rheumatic disorders of mitral, aortic and tricuspid valves; J44.9 Chronic obstructive pulmonary disease, unspecified; D50.9 Iron deficiency anemia, unspecified; I25.10 Atherosclerotic heart disease of native coronary artery without angina pectoris; K64.8 Other hemorrhoids; D12.0 Benign neoplasm of cecum; K31.819 Angiodysplasia of stomach and duodenum without bleeding; K31.7 Polyp of stomach and duodenum; F17.200 Nicotine dependence, unspecified, uncomplicated; Z79.82 Long term (current) use of aspirin; Z79.02 Long term (current) use of antithrombotics/antiplatelets; Z95.5 Presence of coronary angioplasty implant and graft
CPT/HCPCS: 36415; 36430; 71045; 71260; 74177; 80048; 80061; 80076; 82270; 82378; 82550; 82553; 82607; 82746; 83010; 83036; 83540; 84443; 84484; 85025; 86850; 86900; 86901; 86920; 88305; 88312; 93005; 93306; 94664; 96374; J1940; P9016; Q9967